=== PATIENT | female | born 1955 | race Two or more races ===

== ENCOUNTER 2017-11-14 07:58 | Day surgery (SDC) | payer OTHER ==
[~2017-11-14] VITALS: Ht 149.9 cm; Wt 83.0 kg
[2017-11-14] VITALS (9 sets, daily range): BP systolic 113–142; BP diastolic 59–74
[2017-11-14] MEDS ORDERED: VITAMIN D31000 UNI1 PO (09:42)
[2017-11-14] MEDS ORDERED: BENAZEPRIL HCL10 MG ORAL (09:42)
[2017-11-14] MEDS ORDERED: IRON325 M1 PO (09:42)
[2017-11-14] MEDS ORDERED: CALCIUM500 M3 PO (09:42)
[2017-11-14] MEDS ORDERED: METFORMIN HCL850 M1 ORAL (09:42)
[2017-11-14] MEDS ORDERED: GLIPIZIDE5 MG ORAL (09:42)
[2017-11-14] MEDS ORDERED: ATORVASTATIN CA20 MG ORAL (09:42)
--- NOTE | 2017-11-14 09:58 | Short Stay Surgery H&P ---
History of Present Illness History of Present Illness Chief Complaint Abdominal pains, GERDs HPI Alberta Braden is a 62 year old female who was admitted on for Gerd,/Abdominal pains Patient History Allergies: Coded Allergies: SULFAMETHOXAZOLE (Verified Allergy, Severe, Rash, 11/14/17) TRIMETHOPRIM (Verified Allergy, Severe, Rash, 11/14/17) PAST MEDICAL HISTORY: (1) Hypertension (2) Hyperlipidemia (3) Diabetes Medication History Scheduled Atorvastatin Calcium* (Atorvastatin Calcium*), 20 MG ORAL BEDTIME, (Reported) Benazepril Hcl* (Benazepril Hcl*), 10 MG ORAL DAILY, (Reported) Calcium Carbonate (Calcium), 500 MG PO BID, (Reported) Cholecalciferol (Vitamin D3) (Vitamin D3), 1,000 UNIT PO DAILY, (Reported) Glipizide* (Glipizide*), 5 MG ORAL BIDAC, (Reported) Metformin Hcl* (Metformin Hcl*), 850 MG ORAL DAILY, (Reported) Miscellaneous Medications Ferrous Sulfate (Iron), 325 MG PO, (Reported) Review of Systems Respiratory: Reports: no symptoms Skeletal: Reports: trauma Genitourinary: Reports: no symptoms Endocrine: Reports: diabetes - type 2 Hematologic: Reports: no symptoms Physical Exam Vital Signs Last Vital Signs Date Time Temp Pulse Resp B/P (MAP) Pulse Ox O2 Delivery O2 Flow Rate FiO2 11/14/17 09:50 Room Air 11/14/17 09:46 98.1 56 18 142/67 (92) 97 98.1 Skin: normal HENT: normal Heart: normal Lungs: normal Abdomen: abnormal Extremities: normal Genitourinary: normal Plan Plan of Care Upper and lower GI endoscopies with biopsies. Preop Interventions None. Summary of Findings See the reports Attestation Are the patient's medical conditions optimized for surgery? Attestation Response: yes Mariela Newberry MD Nov 14, 2017 09:58
--- NOTE | 2017-11-14 09:59 | Pre-Procedure Note/Attestation ---
Pre-Procedure Note/Attestation Complete Prior to Procedure Planned Procedure: left Procedure Narrative: Endoscopic examinations of the upper and the lower GI tract with biopsy Indications for Procedure Pre-Operative Diagnosis: R/O Peptic ulcer/colitis/gastritis Attestation I attest that I discussed the nature of the procedure; its benefits; risks and complications; and alternatives (and the risks and benefits of such alternatives ), prior to the procedure, with the patient (or the patient's legal medical office representative). I attest that, if there was a reasonable possibility of needing a blood transfusion, the patient (or the patient's legal medical office representative) was given the [place] [facility] [employer] [facility] standardized written summary, pursuant to the Eddie Mckenna Blood Safety Act ([place] Health and Safety Code # 1645, as amended). I attest that I re-evaluated the patient just prior to the surgery and that there has been no change in the patient's H&P, except as documented below: Mariela Newberry MD Nov 14, 2017 09:59
[2017-11-14] MEDS ORDERED: Propofol 200mg/20ml IV ONE (10:00)
[2017-11-14] MEDS ORDERED: Atropine Sulfate 0.4mg/ml inj ONE (10:00)
[2017-11-14] MEDS ORDERED: Lidocaine 1% MPF 10mg/ml 5ml ONE (10:00)
[2017-11-14] MEDS ORDERED: LR 1000ml ONE (10:00)
[2017-11-14] MEDS ORDERED: LR 1000ml 1,000 ML IVLG SCH (10:05)
--- NOTE | 2017-11-14 10:10 | Anethesia Preoperative Eval ---
Anesthesia Pre-op PMH/ROS General Date of Evaluation: Nov 14, 2017 Time of Evaluation: 09:56 Anesthesiologist: janelle ASA Score: ASA 3 Mallampati Score Class I : Soft palate, uvula, fauces, pillars visible Class II: Soft palate, uvula, fauces visible Class III: Soft palate, base of uvula visible Class IV: Only hard plate visible Mallampati Classification: Class II Surgeon: wili Diagnosis: gerd Surgical Procedure: egd/colonoscopy Anesthesia History: none Family History: no anesthesia problems Allergies: Coded Allergies: SULFAMETHOXAZOLE (Verified Allergy, Severe, Rash, 11/14/17) TRIMETHOPRIM (Verified Allergy, Severe, Rash, 11/14/17) Medications: see eMAR Past Medical History Cardiovascular: Reports: HTN, other - hypercholesterolemia Gastrointestinal/Genitourinary: Reports: GERD, other - ibs Endocrine: Reports: DM Other: obesity Anesthesia Pre-op Phys. Exam Physician Exam Last Vital Signs Date Time Temp Pulse Resp B/P (MAP) Pulse Ox O2 Delivery O2 Flow Rate FiO2 11/14/17 09:50 Room Air 11/14/17 09:46 98.1 56 18 142/67 (92) 97 98.1 Constitutional: NAD Neurologic: CN 2-12 intact Cardiovascular: RRR Respiratory: CTA Gastrointestinal: S/NT/ND Airway Exam Mallampati Score: Class II MO: limited Neck: short TMD: 2fb ROM: limited Teeth: missing Dentures: upper Anesthesia Pre-op A/P Risk Assessment & Plan Assessment: asa3 Plan: mac Status Change Before Surgery: No Pre-Antibiotics Drug: Lorie Pena MD Nov 14, 2017 10:10
[2017-11-14] MEDS ORDERED: Atropine Inj 1mg/10ml Syr IV PRN (10:15)
[2017-11-14] MEDS ORDERED: Midazolam 2mg/2ml Inj IVP PRN (10:15)
[2017-11-14] MEDS ORDERED: Labetalol 5mg/ml 20ml vial IV PRN (10:15)
[2017-11-14] MEDS ORDERED: fentaNYL 100 mcg/2 mL IV PRN (10:15)
[2017-11-14] MEDS ORDERED: DiphenhydrAMINE 50mg/ml Inj IVP PRN (10:15)
--- NOTE | 2017-11-14 10:43 | Endoscopy Procedure Note ---
Endoscopy Procedure Note General Indication for Procedure: Abdominal pains/GERDs Procedures Performed: EGD - Completely normal UGI endoscopy. A random biopsy was obtained from gastric body., colonoscopy - Grade I-II Internal hemorrhoids and highly redundant colon and mild generalized colonic diverticulosis. Specimen: yes Pt Tolerated Procedure Well: Yes Estimated Blood Loss: none Anesthesia Anesthesiologist: Dr. Beasley Anesthesia: moderate sedation Medications Medication Given: see anesthesia record Inserted Devices Implant(s) used?: No Quality Quality of Bowel Preparation: Fair Did scope reach the cecum?: Yes Was there any complications?: No GI Core Measures 50 yrs or older w/o bx or poly: Yes 10yrs. F/U not recommended: Yes If not recommended, why?: Med reason:<3 yrs.: System Reason:<3 yrs.: Mariela Newberry MD Nov 14, 2017 10:43
--- NOTE | 2017-11-14 10:44 | Discharge Instructions ---
Discharge Instructions Discharge Instructions Follow up with: Visit doctor after 2 weeks For Congestive Heart Failure Reminder Report to your physician any weight gain of 5 pounds or more in one week. Mariela Newberry MD Nov 14, 2017 10:44
--- NOTE | 2017-11-14 11:03 | Immediate Post-Op Evaluation ---
Immediate Post-Op Evalulation Immediate Post-Op Evalulation Procedure: egd/colonoscopy/bx Date of Evaluation: Nov 14, 2017 Time of Evaluation: 10:59 IV Fluids: 350ml lr Blood Products: none Estimated Blood Loss: negligible Blood Pressure Systolic: 126 Blood Pressure Diastolic: 75 Pulse Rate: 56 Respiratory Rate: 18 O2 Sat by Pulse Oximetry: 100 Temperature (Fahrenheit): 98.1 Pain Score (1-10): 0 Nausea: No Vomiting: No Complications none Patient Status: awake, reacts, patent Hydration Status: adequate Drug: Lorie Pena MD Nov 14, 2017 11:03
--- NOTE | 2017-11-14 11:05 | 48 Hour Post Anesthesia Eval ---
Post Anesthesia Evaluation Procedure: egd/colonoscopy/bx Date of Evaluation: Nov 14, 2017 Time of Evaluation: 01:00 Blood Pressure Systolic: 132 0: 75 Pulse Rate: 56 Respiratory Rate: 18 Temperature (Fahrenheit): 98.1 O2 Sat by Pulse Oximetry: 100 Airway: patent Nausea: No Vomiting: No Pain Intensity: 0 Hydration Status: adequate Cardiopulmonary Status: stable Mental Status/LOC: patient returned to baseline Post-Anesthesia Complications: none Follow-up care needed: N/A Lorie Barahona MD Nov 14, 2017 11:05
--- NOTE | 2017-11-14 16:30 | Operative Note - Dictated ---
DATE OF OPERATION: 11/14/2017 PROCEDURE: Esophagogastroduodenoscopy with biopsy. SURGEON: Mariela Newberry M.D. PREOPERATIVE DIAGNOSIS: Abdominal pain, history of gastroesophageal reflux, GERD, rule out peptic ulcer disease. POSTOPERATIVE DIAGNOSIS: Completely normal upper GI endoscopy. Biopsy was taken per random from gastric body. MEDICATION USED: Per Dr. Beasley, anesthesiologist. INSTRUMENT: GIF Olympus video upper GI endoscope. DESCRIPTION OF PROCEDURE: The patient, after arriving in the endoscopy unit, was told about risks and benefits of the procedure, which she accepted signed informed consent. She was then put on the left lateral decubitus position. After adequate IV sedation, the scope was gently passed through the cricopharyngeal area, was lodged into the upper esophagus and gradually advanced towards gastroesophageal junction. The entire length of the esophagus looked normal and there was no any stricture, inflammatory process, ulceration, etc. GE junction also looked normal. No evidence of hiatal hernia or Rae's. At this time, the scope was advanced into the stomach and gastric cavity was distended with insufflation of air. The areas of the fundus and the body and antrum were examined in an cost clerk fashion, which revealed no pathology. The gastric mucosa looked completely normal. At this time, one random biopsy from gastric body obtained and subsequently, the scope was passed through the pylorus. First and second portion of duodenum were found to be also normal. Finally, after obtaining a biopsy from gastric body, procedure was terminated. The patient tolerated the procedure well and left the endoscopy room in a good condition. Mariela Newberry M.D. DR: ALCIDES JOB#: [id number] CC:
--- NOTE | 2017-11-14 17:00 | Operative Note - Dictated ---
DATE OF OPERATION: 11/14/2017 PROCEDURE: Total colonoscopy. SURGEON: Mariela Newberry M.D. PREOPERATIVE DIAGNOSIS: Abdominal pain, rule out colitis. POSTOPERATIVE DIAGNOSIS: 1. Grade 1/2 internal hemorrhoid non-bleeding at this time. 2. Mild generalized diverticulosis of the colon with high redundancy. MEDICATION USED: Per Dr. Beasley, anesthesiologist. INSTRUMENT: GIF Olympus videocolonoscope. DESCRIPTION OF PROCEDURE: The patient, after arriving at the endoscopy unit, was told about risks and benefits of the procedure, which she accepted and signed informed consent. At this time, she was put on the left lateral decubitus position and after adequate IV sedation, the scope was gently passed through the anal area, which revealed evidence of hemorrhoidal tag and a retroflexion maneuver was applied, which revealed evidence of internal hemorrhoids, which were not friable. This hemorrhoid was considered to be grade 1/2. The rest of the rectum also looked normal. At this time, the scope was gradually passed into a very highly redundant colon, which revealed evidence of diverticular lesions of mild degree along the colon of no great significance. There was no any evidence of a stricture, bleeding, colitis, polyps, tumors, etc. Gradually, the scope reached towards the splenic flexure, it was guided into the transverse colon, hepatic flexure, and finally was lodged into the base of the cecum. The colon cleanup was somewhat fair, but there was still liquidy stool along the colon, which made the examination difficult and multiple irrigation was required. Finally, after reaching to the base of the cecum, within 6 minutes, the scope was gradually pulled out and finding no other abnormalities, procedure was terminated. The patient tolerated the procedure well and left the endoscopy room in good condition. Mariela Newberry M.D. DR: ANKITA JOB#: [id number] CC:
--- NOTE | 2017-11-14 18:15 | Pre-op HX & Phy Repo 2 SIG ---
DATE OF ADMISSION: 11/14/2017 HISTORY: The applicant is a 62-year-old , [id number] female who is being seen prior to undergoing the procedures of upper and lower GI endoscopy, for which she has been scheduled to receive for evaluation of gastrointestinal complaints and conditions that she has suffered subsequent to her work injury. The applicant basically has been complaining of generalized abdominal pain mostly in the side of the abdomen and other part of the abdomen, occasionally radiating towards the chest area. She also does complain of acid reflux consistent with GERD as she was started on nonsteroidal anti-inflammatory agents and strong analgesics subsequent to her work injury. She denies any vomiting or nausea or GI bleeding, however. The applicant was receiving ibuprofen for a long time and subsequently, she was advised to stop it. The applicant denies any difficulty swallowing. No hematemesis, melena, or hematochezia reported. The applicant, however, has had history of obesity, particularly aggravated post injury. She denies having any history of Helicobacter pylori gastritis being diagnosed in the past. Obviously, the applicant had received some endoscopic procedures in the past, the results of which have not been available to us. As I mentioned, the applicant was injured at job site as she was working for [employer], working since 2006 up to 2016. 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 As I mentioned, the applicant has been having symptoms of heartburn and nocturnal regurgitation, but had never been treated with any PPIs or H2 blockers. Also, she received a colonoscopic examination, however, there was no any report of hemorrhoids, tumors, polyps, etc. PAST MEDICAL HISTORY: Hypertension, hyperlipidemia, high cholesterol, and diabetes. PAST SURGICAL HISTORY: Two C-sections. PRESENT MEDICATIONS: Glipizide, metformin, baby aspirin, omeprazole, , and calcium. She also takes some medication for hyperlipidemia and high cholesterol, the name of which is not available. ALLERGIES: To Bactrim. FAMILY HISTORY: Not significant. HABITS: The applicant denies drinking alcohol or smoking cigarettes. REVIEW OF SYSTEMS: Basically history of present illness. PHYSICAL EXAMINATION: GENERAL: At this time reveals alert, oriented, very pleasant female, who looks obese, but in no acute distress. VITAL SIGNS: Stable. HEENT: Normocephalic. Pupils equal in size and reactive to light and accommodation. No jaundice. Buccal cavity, tongue midline, well hydrated. NECK: Supple. No JVD, thyromegaly, or adenopathy. CHEST: Clear to auscultation and percussion. No rales or rhonchi. HEART: S1 and S2 normal. Regular rhythm. No gallops or murmur. ABDOMEN: Soft, but obese and there is area of tenderness all over the abdomen, but no organomegaly or mass palpated at this time. EXTREMITIES: Unremarkable. SKIN AND LYMPHATICS: Not significant. PRELIMINARY PREOPERATIVE IMPRESSION: 1. Epigastric pain, history of gastroesophageal reflux, rule out nonsteroidal anti-inflammatory drug-induced gastropathy, peptic ulcer disease, duodenal ulcer, gastric ulcer, esophagitis. 2. Generalized abdominal pain of uncertain etiology, rule out colitis versus irritable bowel syndrome. 3. Hypertension, diabetes mellitus, and hyperlipidemia. 4. Depression. RECOMMENDATION: The applicant seems to be stable at this time to undergo the procedure of upper and lower GI endoscopy for which she has been scheduled. She understands the risks and benefits, and will sign the consent. Said Lindy Newberry DR: ALCIDES JOB#: [id number] CC:
== END 2017-11-14 12:00 | disposition home or self-care (01) ==
LOC: GAS 07:58
DX: K29.70 Gastritis, unspecified, without bleeding (principal); B96.81 Helicobacter pylori [H. pylori] as the cause of diseases classified elsewhere; K21.9 Gastro-esophageal reflux disease without esophagitis; K64.0 First degree hemorrhoids; K57.30 Diverticulosis of large intestine without perforation or abscess without bleeding; Q43.8 Other specified congenital malformations of intestine; I10 Essential (primary) hypertension; E78.5 Hyperlipidemia, unspecified; E11.9 Type 2 diabetes mellitus without complications; Z79.84 Long term (current) use of oral hypoglycemic drugs; F32.9 Major depressive disorder, single episode, unspecified; E66.9 Obesity, unspecified; Z79.82 Long term (current) use of aspirin; Z88.2 Allergy status to sulfonamides
CPT/HCPCS: 43239; 45378; 82962; J0461; J2704; J7120; 94003; 94150